=== PATIENT | male | born 1955 | race Caucasian/White ===

== ENCOUNTER → 2019-08-28 | Outpatient (CLI) | payer MEDICARE ==
[~2019-08-28] MED LIST: E-Z-GAS II EFFERVESCENT PACKET (SODIUM BICARB./CITRIC ACID/SIMETHICONE) As Ordered ONE; E-Z-HD 98% w/w 340GM SUSP BTL As Ordered ONE; E-Z-PAQUE 96% w/w SUSP 176GM BTL As Ordered ONE
--- NOTE | 2019-08-28 19:03 | REP ---
Esophagram The procedure was performed under the direct supervision of Dr. Caballero. The images were reviewed with Dr. Caballero. A single view PA chest x-ray is submitted as a seal mixer film. The superior mediastinal structures are midline. The heart size is within normal limits. The lungs are clear. There is dextroscoliosis. Liquid barium and gas producing granules were given in the erect position as well as liquid barium in the prone oblique positions in order to perform a double contrast esophagram examination. The oral and pharyngeal stages of deglutition are unremarkable. Esophageal transport is prompt and efficient and there is no esophagitis, stricture or mucosal ring. There is a sliding type hiatal hernia. There is gastroesophageal reflux demonstrated to above the level of the rere. Impression: There is a sliding type hiatal hernia. There is gastroesophageal reflux demonstrated to above the level of the rere. One minute of fluoro time was utilized for this procedure. Electronically Signed by SONY Shore 08/28/2019 03:53 P Electronically Signed by Donnell Caballero MD 08/28/2019 06:55 P
== END ==
LOC: M RAD 08:26
PROVIDERS: ATTEND Physician Assistant Medical
DX: R13.10 Dysphagia, unspecified (principal); K21.9 Gastro-esophageal reflux disease without esophagitis

== ENCOUNTER 2019-09-21 09:26 | Day surgery (SDC) | payer MEDICARE ==
[~2019-09-21] VITALS: Ht 175.3 cm; Wt 123.9 kg
[~2019-09-21 09:26] MED LIST changes: -E-Z-GAS II EFFERVESCENT PACKET (SODIUM BICARB./CITRIC ACID/SIMETHICONE) As Ordered ONE; -E-Z-HD 98% w/w 340GM SUSP BTL As Ordered ONE; -E-Z-PAQUE 96% w/w SUSP 176GM BTL As Ordered ONE; +LISI10TA4 PO; +PROBCAP14 PO
[2019-09-21] MEDS ORDERED: NS 1,000 ML IV ONE (11:00)
[2019-09-21] MEDS ORDERED: fentaNYL 100 MCG/2 ML INJECTION (J3010) As Ordered ONE (11:11)
[2019-09-21] MEDS ORDERED: LIDOCAINE 2% INJ 100 MG/5 ML SDV (FOR ANES.) As Ordered ONE (11:11)
[2019-09-21] MEDS ORDERED: propofoL 200 MG/20 ML VIAL As Ordered ONE ×2 (11:11→11:34)
--- NOTE | 2019-09-21 11:22 | ROOR ---
Patient Name: Renato Le Procedure Date: 09/21/2019 11:04 AM Date of : 1955 Age: 64 Room: [facility] Gender: Male Note Status: Finalized Procedure: Upper GI endoscopy Indications: Dysphagia Providers: Sathish BUSCH MD Referring MD: Fly Carson MD Requesting Provider: Medicines: Monitored Anesthesia Care Complications: No immediate complications. Procedure: Pre-Anesthesia Assessment: - The heart rate, respiratory rate, oxygen saturations, blood pressure, adequacy of pulmonary ventilation, and response to care were monitored throughout the procedure. The Endoscope was introduced through the mouth, and advanced to the second part of duodenum. The upper GI endoscopy was accomplished without difficulty. The patient tolerated the procedure well. Findings: A low-grade of narrowing Schatzki ring was found at the gastroesophageal junction. This was biopsied with a cold forceps for histology. A TTS dilator was passed through the scope. Dilation with an 18-19-20 mm balloon dilator was performed to 20 mm. The dilation site was examined and showed complete resolution of luminal narrowing. A medium-sized hiatal hernia was present. The examined duodenum was normal. Impression: - Low-grade of narrowing Schatzki ring. Biopsied. Dilated. - Small/Medium-sized sliding type hiatal hernia. - The stomach is otherwise normal. - Normal examined duodenum. Recommendation: - Continue present medications. - Observe patient's clinical course. - I anticipate no further need for intervention. Sathish Busch MD Sathish BUSCH MD 09/21/2019 11:21:32 AM Electronically signed by Sathish BUSCH MD Number of Addenda: 0 Note Initiated On: 09/21/2019 11:04 AM Estimated Blood Loss: Estimated blood loss: none.
--- NOTE | 2019-09-21 11:38 | ROOR ---
Patient Name: Renato Le Procedure Date: 09/21/2019 11:05 AM Date of : 1955 Age: 64 Room: [facility] Gender: Male Note Status: Finalized Procedure: Colonoscopy Indications: Screening for colorectal malignant neoplasm Providers: Sathish BUSCH MD Referring MD: Fly Carson MD Requesting Provider: Medicines: Monitored Anesthesia Care Complications: No immediate complications. Procedure: Pre-Anesthesia Assessment: - The heart rate, respiratory rate, oxygen saturations, blood pressure, adequacy of pulmonary ventilation, and response to care were monitored throughout the procedure. The Colonoscope was introduced through the anus and advanced to the cecum, identified by appendiceal orifice and ileocecal valve. The colonoscopy was performed without difficulty. The patient tolerated the procedure well. The quality of the bowel preparation was suboptimal. (thick adherent mucus). Findings: The perianal and digital rectal examinations were normal. A 5 mm polyp was found in the descending colon. The polyp was sessile. The polyp was removed with a cold snare. Resection and retrieval were complete. Mild sigmoid diverticulosis and small internal hemorrhoids. The exam was otherwise without abnormality. Impression: - Preparation of the colon was suboptimal. - One 5 mm polyp in the descending colon, removed with a cold snare. Resected and retrieved. - Mild sigmoid diverticulosis and small internal hemorrhoids. - The examination was otherwise normal. Recommendation: - Repeat colonoscopy in 2 years because the bowel preparation was suboptimal. - Repeat colonoscopy in 2 years for adenoma surveillance. - (Rec alternate colon preparation for next colonoscopy) Sathish Busch MD Sathish BUSCH MD 09/21/2019 11:37:59 AM Electronically signed by Sathish BUSCH MD Number of Addenda: 0 Note Initiated On: 09/21/2019 11:05 AM Estimated Blood Loss: Estimated blood loss: none.
[2019-09-21 12:09] VITALS: BP 119/58
== END 2019-09-21 12:46 | disposition home or self-care (01) ==
LOC: M OPP 09:26
PROVIDERS: ATTEND Internal Medicine Gastroenterology
DX: Z12.11 Encounter for screening for malignant neoplasm of colon (principal); D12.4 Benign neoplasm of descending colon; K57.30 Diverticulosis of large intestine without perforation or abscess without bleeding; K64.8 Other hemorrhoids; K22.2 Esophageal obstruction; K44.9 Diaphragmatic hernia without obstruction or gangrene; R13.10 Dysphagia, unspecified; Z79.899 Other long term (current) drug therapy
CPT/HCPCS: 43239; 43249; 45385; 88305; J3010

== ENCOUNTER → 2019-09-25 | Outpatient (CLI) | payer MEDICARE ==
--- NOTE | 2019-09-25 14:30 | REPPI ---
Clinical: Dyspnea. Technique: PA and lateral. Comparison: None. Findings: Mediastinum and cardiac silhouette are normal. Lung cordon demonstrate mild chronic-appearing interstitial changes. No focal consolidation, effusion, or pneumothorax. Skeletal structures are intact. Impression: No focal consolidation or effusion. Electronically Signed by Freedom Floyd MD 09/25/2019 02:21 P
== END ==
LOC: M PLAIMG 14:02
PROVIDERS: ATTEND Physician Assistant
DX: R06.00 Dyspnea, unspecified (principal)

== ENCOUNTER → 2020-01-23 | Outpatient (CLI) | payer MEDICARE ==
[~2020-01-23] MED LIST changes: +METHACHOLINE KIT (J7674) INH ONE
--- NOTE | 2020-01-23 15:25 | PFTRPT ---
Height: 69.00 Inches Weight: 260.00 Lbs BSA: 2.31 Diagnosis: R06.00 DATE OF PROCEDURE: 01/23/2020 ORDERED BY: Isreal Painting PA-C INTERPRETATION: Study of excellent technical quality. Under protocol, methacholine was administered. Even after a maximal dose of 25 mg or 188.875 CDUs, no provocation dose ever achieved. IMPRESSION: Negative methacholine challenge study. MTDD
== END ==
LOC: M CARPUL 14:27
PROVIDERS: ATTEND Physician Assistant
DX: R06.00 Dyspnea, unspecified (principal)
CPT/HCPCS: 94070; 95070; J7674

== ENCOUNTER → 2020-10-14 | Outpatient (CLI) | payer MEDICARE ==
[~2020-10-14] MED LIST changes: +LISI10TA22 PO; -LISI10TA4 PO; -METHACHOLINE KIT (J7674) INH ONE
--- NOTE | 2020-10-16 11:34 | SLEEPHOME ---
DIAGNOSTIC HOME SLEEP STUDY DATE: 10/14/2020 ORDERED BY: Sathish Ayala M.D. Diagnostic home sleep testing was performed due to concern for the obstructive sleep apnea syndrome in this patient with a history of snoring. For testing, a nocturnal T3 respiratory monitoring device was used. Continuous record was made of pulse, oxygen saturation, air flow, chest and abdominal strain, and body position. 9 hours and 59 minutes of data were reviewed. There were 5 hours and 50 minutes marked as time in bed. During the interval marked time in bed, there were 245 respiratory events identified of 10 seconds in duration or greater for a respiratory event index 41.9. The events were primarily obstructive. Baseline pulse rate 55. Pulse rate range 43 to 83. Baseline saturation was 91%. Saturations fell to 77%, and testing was performed in both the supine and non-supine positions. IMPRESSION: Abnormal home sleep testing, with repetitive respiratory events and oxygen desaturations to 77% with a respiratory event index of 41.9, is consistent with the obstructive sleep apnea syndrome. RECOMMENDATION: The patient should be encouraged to undergo a formal sleep evaluation.
== END ==
LOC: M SLEEP HO 15:28
PROVIDERS: ATTEND Internal Medicine Cardiovascular Disease
DX: R06.83 Snoring (principal)

== ENCOUNTER → 2021-11-28 | Outpatient (CLI) | payer MEDICARE | LOC: M GI 13:44 | PROVIDERS: ATTEND Physician Assistant Medical | DX: Z53.21 Procedure and treatment not carried out due to patient leaving prior to being seen by health care provider (principal) ==

== ENCOUNTER 2022-04-30 18:16 | Observation (INO) | payer MEDICARE ==
[~2022-04-30] VITALS: Ht 172.7 cm; Wt 117.6 kg
[2022-04-30 19:06] LABS: BASO # 0.1 10^3/uL (0.0-0.2); BASO % 0.9 % (0.0-1.0); EOS # 0.4 10^3/uL (0.0-0.5); EOS % 4.6 % (0.0-3.0); HEMATOCRIT 44.1 % (42.0-52.0); HEMOGLOBIN 15.1 g/dl (13.5-17.5); LYMPH # 3.1 10^3/uL (1.5-5.0); LYMPH % 37.2 % (24.0-44.0); MEAN CORPUSCULAR HEMOGLOBIN 32.6 pg (27.0-33.0); MEAN CORPUSCULAR HGB CONC 34.2 g/dl (32.0-36.5); MEAN CORPUSCULAR VOLUME 95.2 fl (80.0-96.0); MONO # 0.9 10^3/uL (0.0-0.8); MONO % 10.8 % (2.0-8.0); NEUTROPHILS # 3.8 10^3/uL (1.5-8.5); NEUTROPHILS % 46.4 % (36.0-66.0); PLATELET COUNT, AUTOMATED 276 10^3/uL (150-450); RED BLOOD COUNT 4.63 10^6/uL (4.30-6.10); WHITE BLOOD COUNT 8.2 10^3/uL (4.0-10.0)
[2022-04-30] MEDS ORDERED: ISOVUE-370 76% 100ML VIAL As Ordered ONE (19:23)
[2022-04-30 19:42] LABS: BLOOD UREA NITROGEN 18 MG/DL (7-18); CALCIUM LEVEL 10.1 MG/DL (8.8-10.2); CARBON DIOXIDE LEVEL 27 MEQ/L (21-32); CHLORIDE LEVEL 102 MEQ/L (98-107); CREATININE FOR GFR 1.17 MG/DL (0.70-1.30); GLOMERULAR FILTRATION RATE > 60.0 (>49); GLUCOSE, FASTING 84 MG/DL (70-100); POTASSIUM SERUM 4.2 MEQ/L (3.5-5.1); SODIUM LEVEL 133 MEQ/L (136-145)
[2022-04-30 19:46] LABS: CK-MB VALUE MASS 7.2 NG/ML (<3.6); MB/CK RELATIVE INDEX 2.6 (< OR =4)
[2022-04-30 20:14] LABS: RSV AMPLIFICATION NEGATIVE (NEGATIVE)
[2022-04-30 21:05] LABS: CK-MB VALUE MASS 5.8 NG/ML (<3.6); MB/CK RELATIVE INDEX 2.21 (< OR =4)
[2022-04-30] MEDS ORDERED: HYDR-3490 PO (22:01)
[2022-04-30] MEDS ORDERED: HOME MED LIST COMPLETE! XX SCH (22:05)
[2022-04-30] MEDS ORDERED: MOM 30ML SUSPENSION UDC PO PRN (23:05)
[2022-05-01 01:10] VITALS: BP 115/65
[2022-05-01 01:56] VITALS: BP 115/65
[2022-05-01 05:30] VITALS: BP 108/69
[2022-05-01 05:50] LABS: HEMATOCRIT 42.9 % (42.0-52.0); HEMOGLOBIN 14.5 g/dl (13.5-17.5); MEAN CORPUSCULAR HEMOGLOBIN 32.4 pg (27.0-33.0); MEAN CORPUSCULAR HGB CONC 33.8 g/dl (32.0-36.5); MEAN CORPUSCULAR VOLUME 95.8 fl (80.0-96.0); PLATELET COUNT, AUTOMATED 254 10^3/uL (150-450); RED BLOOD COUNT 4.48 10^6/uL (4.30-6.10); WHITE BLOOD COUNT 6.6 10^3/uL (4.0-10.0)
[2022-05-01 06:34] LABS: ALBUMIN 3.5 GM/DL (3.2-5.2); ALT/SGPT 37 U/L (12-78); BILIRUBIN,TOTAL 0.6 MG/DL (0.2-1.0); BLOOD UREA NITROGEN 14 MG/DL (7-18); CALCIUM LEVEL 9.5 MG/DL (8.8-10.2); CARBON DIOXIDE LEVEL 27 MEQ/L (21-32); CHLORIDE LEVEL 105 MEQ/L (98-107); CREATININE FOR GFR 0.99 MG/DL (0.70-1.30); GLOMERULAR FILTRATION RATE > 60.0 (>49); GLUCOSE, FASTING 90 MG/DL (70-100); POTASSIUM SERUM 4.1 MEQ/L (3.5-5.1); SODIUM LEVEL 135 MEQ/L (136-145); TOTAL PROTEIN 6.8 GM/DL (6.4-8.2)
[2022-05-01] MEDS ORDERED: ENOXAPARIN 40MG/0.4ML SYRINGE (J1650 PER 10MG) SC SCH (09:00)
[2022-05-01 09:02] VITALS: BP_SYST 117; BP_SYST 126; BP_SYST 127; BP_DIAS 73; BP_DIAS 74
[2022-05-01 09:24] VITALS: BP 126/74
== END 2022-05-01 12:07 | disposition home or self-care (01) ==
LOC: M ED 18:16 → M ED INP 18:17 → ENRESERV 05-01 00:45 → M MSPAV 05-01 01:20
PROVIDERS: ADMIT Family Medicine; ATTEND Internal Medicine
DX: R55 Syncope and collapse (principal); M54.50 Low back pain, unspecified; G89.29 Other chronic pain; I10 Essential (primary) hypertension; M19.90 Unspecified osteoarthritis, unspecified site; Z79.899 Other long term (current) drug therapy; Z86.16 Personal history of COVID-19
CPT/HCPCS: 36415; 71045; 71275; 80048; 80053; 82550; 82553; 84484; 85025; 85027; 87426; 87631; 93005; 93041; 93306; 94760; 97165; 99285; G0378; Q9967

== ENCOUNTER 2022-05-21 16:10 | Emergency (ER) | payer MEDICARE ==
[~2022-05-21] VITALS: Ht 175.3 cm; Wt 116.3 kg
[~2022-05-21 16:10] MED LIST changes: +HYDR-3490 PO
[2022-05-21 18:42] LABS: BASO # 0.1 10^3/uL (0.0-0.2); EOS # 0.3 10^3/uL (0.0-0.5); EOS % 4.1 % (0.0-3.0); HEMATOCRIT 43.9 % (42.0-52.0); HEMOGLOBIN 14.8 g/dl (13.5-17.5); LYMPH # 3.4 10^3/uL (1.5-5.0); LYMPH % 47.7 % (24.0-44.0); MEAN CORPUSCULAR HGB CONC 33.7 g/dl (32.0-36.5); MONO # 0.9 10^3/uL (0.0-0.8); NEUTROPHILS # 2.5 10^3/uL (1.5-8.5); NEUTROPHILS % 35.1 % (36.0-66.0); PLATELET COUNT, AUTOMATED 251 10^3/uL (150-450); RED BLOOD COUNT 4.62 10^6/uL (4.30-6.10); WHITE BLOOD COUNT 7.1 10^3/uL (4.0-10.0)
[2022-05-21 21:32] VITALS: BP 134/75
== END 2022-05-21 21:34 | disposition home or self-care (01) ==
LOC: M ED 16:10
DX: M79.604 Pain in right leg (principal); I10 Essential (primary) hypertension; F32.A Depression, unspecified; Z79.811 Long term (current) use of aromatase inhibitors; Z79.899 Other long term (current) drug therapy

== ENCOUNTER → 2023-12-14 | Outpatient (CLI) | payer MEDICARE ==
[2023-12-14 17:42] LABS: BASO # 0.1 10^3/uL (0.0-0.2); BASO % 1.1 % (0.0-1.0); EOS # 0.2 10^3/uL (0.0-0.5); EOS % 4.1 % (0.0-3.0); HEMATOCRIT 42.7 % (42.0-52.0); HEMOGLOBIN 14.2 g/dl (13.5-17.5); LYMPH # 2.7 10^3/uL (1.5-5.0); LYMPH % 46.9 % (24.0-44.0); MEAN CORPUSCULAR HEMOGLOBIN 32.4 pg (27.0-33.0); MEAN CORPUSCULAR HGB CONC 33.3 g/dl (32.0-36.5); MEAN CORPUSCULAR VOLUME 97.5 fl (80.0-96.0); MONO # 0.8 10^3/uL (0.0-0.8); MONO % 13.8 % (2.0-8.0); NEUTROPHILS # 1.9 10^3/uL (1.5-8.5); NEUTROPHILS % 33.9 % (36.0-66.0); PLATELET COUNT, AUTOMATED 238 10^3/uL (150-450); RED BLOOD COUNT 4.38 10^6/uL (4.30-6.10); WHITE BLOOD COUNT 5.7 10^3/uL (4.0-10.0)
[2023-12-14 17:50] LABS: C REACTIVE PROTEIN QUANTITATIV < 0.40 MG/DL (<1.0); ERYTHROCYTE SEDIMENTATION RATE 8 mm/hr (0-20)
[2023-12-14 17:52] LABS: RHEUMATOID FACTOR QUANT 5.5 IU/ML (<14)
== END ==
LOC: M PLALAB 15:19
PROVIDERS: ATTEND Orthopaedic Surgery
DX: M16.11 Unilateral primary osteoarthritis, right hip (principal); Z79.899 Other long term (current) drug therapy

== ENCOUNTER 2024-02-22 13:14 | Day surgery (SDC) | payer MEDICARE ==
[~2024-02-22] VITALS: Ht 174 cm; Wt 102.5 kg
[~2024-02-22 13:14] MED LIST changes: +GABA-1171 PO; +LISI20TA33 PO; +ROSU10TA61 PO; +TAMS1CAP17 PO
[2024-02-22] MEDS: NS 1,000 ML IV ONE (13:46)
[2024-02-22] MEDS ORDERED: GLYCOPYRROLATE INJ 0.2 MG/ML 2 ML VIAL As Ordered ONE (14:55)
[2024-02-22 15:01] VITALS: TEMP 98.5
[2024-02-22 15:23] VITALS: BP 134/72; O2SAT 97
== END 2024-02-22 15:33 | disposition home or self-care (01) ==
LOC: M OPP 13:14
PROVIDERS: ATTEND Internal Medicine Gastroenterology
DX: Z86.010 Personal history of colon polyps (principal); K64.8 Other hemorrhoids; K57.30 Diverticulosis of large intestine without perforation or abscess without bleeding; K44.9 Diaphragmatic hernia without obstruction or gangrene; K22.89 Other specified disease of esophagus; K22.70 Barrett's esophagus without dysplasia; K20.0 Eosinophilic esophagitis; I10 Essential (primary) hypertension; Z87.891 Personal history of nicotine dependence; Z79.02 Long term (current) use of antithrombotics/antiplatelets; Z79.899 Other long term (current) drug therapy
CPT/HCPCS: 43239; 88305; G0105; J1596